=== PATIENT | female | born 1940 | race Caucasian/White ===

== ENCOUNTER 2020-05-27 12:17 | Emergency (ER) | payer MEDICARE, SELFPAY ==
--- NOTE | 2020-05-27 | XR_ITS ---
EXAMINATION: XR FOOT, LEFT CLINICAL INFORMATION: Stepped on a nail COMPARISON: None TECHNIQUE: AP, lateral, and oblique views of the left foot. FINDINGS: Findings detail is obscured by the overlying shoe. The nail is present within the medial aspect of the great toe, at the level of the interphalangeal joints, overlying the soft tissues. This may abut the cortex at the medial/distal aspect of the 1st proximal phalanx. No obvious fracture. IMPRESSION: The nail is located within the volar soft tissues of the great toe, possibly abutting the cortex at the medial/distal aspect of the 1st proximal phalanx. No fracture is evident.
--- NOTE | 2020-05-27 | XR_ITS ---
EXAMINATION: XR FOOT, LEFT CLINICAL INFORMATION: Status post foreign body removal COMPARISON: Same day radiographs TECHNIQUE: AP and lateral views of the left foot. FINDINGS: No residual foreign body. No fracture. 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 IMPRESSION: No fracture or residual foreign body.
--- NOTE | 2020-05-27 12:20 | ED_ITS ---
HPI - Wound/Laceration General Chief Complaint: Wound/Laceration Stated Complaint: puncture wound Time Seen by Provider: 05/27/20 12:19 Source: EMS Mode of arrival: EMS Limitations: no limitations History of Present Illness HPI narrative: Stepped on joan nail while outside. Went through soled shoe. Patient tried to remove by self but could not. Tetanus unknown. 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) Extremity Location: left: foot Place: home Patient tetanus UTD: No Context: accidental Associated symptoms: none Related Data Previous Rx's Medication Instructions Recorded ciprofloxacin HCl [Cipro] 500 mg PO BID #14 tab 05/27/20 Allergies Allergy/AdvReac Type Severity Reaction Status Date / Time No Known Allergies Allergy Unknown N/A Verified 05/27/20 12:22 [NO KNOWN ALLERGIES] Review of Systems Review of Systems: Yes all other systems are reviewed and are negative Constitutional: Constitutional: Reports no additional constitutional complaints, Denies body ache(s), Denies chills, Denies fever(s), Denies headache(s) and Denies weakness Eyes: Eyes: Reports no additional eye complaints and Denies change in vision ENT: Reports system reviewed and no additional complaints, except as documented, Denies dizziness, Denies headache(s), Denies nasal congestion, Denies nasal discharge and Denies neck pain Cardiovascular: Cardiovascular: Reports no additional cardiovascular complaints, Denies chest pain, Denies leg edema and Denies dyspnea Respiratory: Respiratory: Reports no additional respiratory complaints, Denies cough and Denies dyspnea Gastrointestinal: Gastrointestinal: Reports no additional gastrointestinal complaints, Denies abdominal pain, Denies diarrhea, Denies nausea and Denies vomiting Genitourinary: Genitourinary: Reports no additional female genitourinary complaints and Denies urinary incontinence Musculoskeletal: Musculoskeletal: Reports no additional musculoskeletal complaints, Denies back pain, Denies arthralgias, Denies joint swelling, Denies neck pain, Denies numbness and Denies tingling Integumentary/Breasts: Skin/Breast: Reports system reviewed and no additional complaints, except as docu and Denies rash Neurologic: Reports system reviewed and no additional complaints, except as documented, Denies Abnormal speech present, Denies dizziness, Denies headache(s), Denies numbness, Denies tingling and Denies weakness PMF Past Medical History Attestation statement: The following information was validated with the patient. Source: obtained from family and nursing notes reviewed Medical History (Updated 05/27/20 @ 12:28 by Kailey Hudson NP) Hyperlipemia Hypertension Surgical History (Updated 05/27/20 @ 12:22 by Kailey Hudson NP) History of hip replacement History of knee replacement Social History Social History Advance Directives: Yes Advance Directives Information Provided: Yes Advance Directives on File: No Physical Exam Vital Signs and I&O and Narrative: Vital Signs and I&O: Vital Signs Temp 98.5 F 05/27/20 12:22 Pulse 71 05/27/20 12:22 Resp 18 05/27/20 12:22 BP 163/76 H 05/27/20 12:22 Pulse Ox 97 05/27/20 12:22 Intake & Output 05/26/20 05/27/20 05/27/20 18:59 06:59 18:59 Weight 76 kg Body Mass Index 26.2 Const: General: cooperative, healthy appearing, comfortable and no acute distress Orientation/consciousness: patient oriented x3 Limitations: no limitations HENMT: Head: Yes normal to inspection Ears: hearing grossly normal bilaterally General nose exam: Normal external nose present Face and sinus: Yes normal facial exam Mouth: Normal oral and palatal mucosa present Throat: Yes posterior oropharynx normal Eyes: General: appearance normal, both eyes and all related structures Pupils: Equal, round and reactive pupils present Neck: Neck: Yes normal visual inspection Chest: Chest palpation & inspection: normal inspection of the chest Resp: Effort & Inspection: normal respiratory effort Auscultation: clear to auscultation bilaterally Cardio: Rate: regular rate Rhythm: regular rhythm Peripheral pulses: Peripheral pulses 2+ throughout GI: Inspection: Yes normal to inspection Palpation (GI): Soft to palpation and nontender Auscultation: normal bowel sounds Back/Spine/Pelvis: Thoracic/Lumbar Spine: thoracic and lumbar spine normal to inspection Skin: General skin exam: no rashes or lesions noted Neuro: General: patient oriented x3, no focal motor deficits and normal sensation to monofilament Cranial nerves: Yes Equal, round and reactive pupils present Cognition (Neuro): normal cognition Speech: No Abnormal speech present Gait exam (Neuro): Normal gait present Motor exam (neuro): 5/5 motor strength present throughout Extrem: Other: Noted to have soled shoe on with nail present over plantar dis nathan aspect. FROM. NV intact distally. General: Yes normal to inspection Course Course Course Narrative: Nail in left foot with shoe present. Will check imaging to eval extent prior to removal. Procedures Foreign Body Removal Time Out Performed: no Site: left Description of foreign body: other (nail) Sedation/Analgesia: none Technique: manual removal and removal with forceps Confirmed by:: radiograph (Repeat X-ray shows no FB) Complications: none Post-procedure exam: awake, alert Neurovascular: normal distal pulse, normal capillary fill, distal light touch sensation intact, distal motor function normal and other (Patient soaked in betadine 15 min post, wound care provided ) MDM - Wound/Laceration MDM Narrative Medical decision making narrative: X-ray shows nail FB in left foot. Removed. See procedure note. Repeat x-ray shows no FB. Scrupulous wound care provided. Given post-op shoe for ambulation. Tetanus updated. Reviewed worrisome signs./symptoms with patient and when to return to ED. comfortable with discharge home. Discharge Plan Discharge Clinical Impression: Foreign body (FB) in soft tissue Puncture wound of plantar aspect of foot Qualifiers: Encounter type: initial encounter Laterality: left Qualified Code(s): S91.332A - Puncture wound without foreign body, left foot, initial encounter Patient Disposition: Home, Self-Care Instructions: Soft Tissue Foreign Body (ED), Puncture Wound in the Foot (ED) Additional Instructions: Start antibiotics today Wash with soap and water daily. Inspect foot daily and return for fever >100.4, redness, pain out of proportion or drainage Prescriptions: New ciprofloxacin HCl [Cipro] 500 mg tablet 500 mg PO BID Qty: 14 RF: 0 Referrals: Mary Jo Rodriguez MD [Primary Care Provider] - 2 days
[2020-05-27 12:22] VITALS: BP 134/70; BP 163/76; PULSE 70; PULSE 71; RESP 18; TEMP 36.9; O2SAT 97; O2SAT 98; BMI 26.2
== END 2020-05-27 14:10 | disposition home or self-care (01) ==
PROVIDERS: Emergency Provider Emergency Medicine; PCP Internal Medicine
DX: S91.332A Puncture wound without foreign body, left foot, initial encounter (principal); W45.0XXA Nail entering through skin, initial encounter; I10 Essential (primary) hypertension; Y93.9 Activity, unspecified; Y92.019 Unspecified place in single-family (private) house as the place of occurrence of the external cause; Y99.9 Unspecified external cause status
CPT/HCPCS: 73620; 73630; 90471; 99284

== ENCOUNTER 2020-06-23 10:53 | Outpatient (REF) | payer MEDICARE, SELFPAY ==
--- NOTE | 2020-06-23 | MM_ITS ---
EXAMINATION: MM SCREENING DIGITAL BREAST TOMOSYNTHESIS, BILATERAL CLINICAL INFORMATION: Screening. Asymptomatic. The lifetime risk of breast cancer based on the Tyrer-Cuzick Model is 2.8%. COMPARISON: Mammography: June 18, 2019 and studies dating back to January 13, 2011 TECHNIQUE: Digital breast tomosynthesis is performed in both the craniocaudal and mediolateral oblique views along with computer-aided detection (CAD). Synthesized 2D images are generated from the tomosynthesis. FINDINGS: The breasts are almost entirely fatty (ACR BI-RADS breast composition Category a). There are no significant masses, abnormal calcifications, or other abnormalities. MM/MM tomosynthesis screening BI IMPRESSION: There are no significant changes from prior study. ASSESSMENT: BI-RADS 1: Negative RECOMMENDATION: Routine annual mammography screening. This patient's information was entered into a reminder system with a target due date for their next mammogram.
== END 2020-06-23 10:54 | disposition home or self-care (01) ==
LOC: HO.MAMMO 10:53
PROVIDERS: PCP Internal Medicine; Visit Provider Internal Medicine
DX: Z12.31 Encounter for screening mammogram for malignant neoplasm of breast (principal)
CPT/HCPCS: 77063; 77067

== ENCOUNTER 2020-09-03 08:38 | Outpatient (REF) | payer MEDICARE, SELFPAY ==
[2020-09-03 11:11] LABS: Alanine Aminotransferase 21 U/L (0-31); Albumin Level 4.3 g/dL (3.5-5.0); Alkaline Phosphatase 80 U/L (39-117); Anion Gap 13 (12-20); Aspartate Amino Transferase 28 U/L (5-31); Bilirubin Total 0.7 mg/dL (0.0-1.0); Blood Urea Nitrogen 18 mg/dL (9-16); Calcium 8.8 mg/dL (8.4-10.2); Carbon Dioxide 27 mmol/L (22-29); Chloride 106 mmol/L (96-108); Cholesterol 208 mg/dL; Estimated Glomerular Filt Rate > 60; Glucose Fasting 82 mg/dL (60-99); HDL Cholesterol 58 mg/dL; LDL Cholesterol Calculated 133 mg/dl; Potassium 4.3 mmol/l (3.3-5.1); Sodium 142 mmol/L (135-145); Total Protein 7.2 g/dL (6.5-8.0); Triglycerides 89 mg/dL
== END 2020-09-03 08:39 | disposition home or self-care (01) ==
LOC: HO.10HDL 08:38
PROVIDERS: Visit Provider Internal Medicine
DX: E78.00 Pure hypercholesterolemia, unspecified (principal); I10 Essential (primary) hypertension
CPT/HCPCS: 36415; 80053; 80061

== ENCOUNTER 2021-01-29 08:51 | Outpatient (REF) | payer MEDICARE, SELFPAY ==
[2021-01-29 10:11] LABS: MANUAL DIFF FLAG NO
[2021-01-29 10:17] LABS: Basophils Percent Auto 0.4 % (0-2); Eosinophils Absolute Auto 0.2 X10*3/uL (0.0-0.4); Eosinophils Percent Auto 2.6 % (0-4); Hematocrit 41.1 % (37-47); Hemoglobin 13.1 g/dl (12.0-16.0); Imm Gran Abs Auto 0.04 X10*3/uL (0.00-0.03); Imm Gran Pct Auto 0.5 % (0.0-0.4); Lymphocytes Percent Auto 36.8 % (20-40); Mean Corpuscular HGB Conc 31.9 g/dl (31.0-35.0); Mean Corpuscular Hemoglobin 29.4 pg (27.0-33.0); Mean Corpuscular Volume 92.2 fL (80-98); Mean Platelet Volume 10.5 fL (9.4-12.3); Monocytes Absolute Auto 0.6 X10*3/uL (0.1-1.2); Monocytes Percent Auto 7.5 % (2-11); Neutrophils Absolute Auto 4.2 X10*3/uL (2.0-8.3); Neutrophils Percent Auto 52.2 % (45-73); Platelet Count 369 X10*3/uL (160-400); Red Blood Count 4.46 X10*6/uL (4.20-5.50); Red Cell Distribution Width 13.6 % (11.0-16.0); White Blood Count 8.1 X10*3/uL (4.8-10.8)
[2021-01-29 10:33] LABS: Alanine Aminotransferase 16 U/L (0-31); Albumin Level 4.2 g/dL (3.5-5.0); Alkaline Phosphatase 93 U/L (39-117); Anion Gap 12 (12-20); Aspartate Amino Transferase 25 U/L (5-31); Bilirubin Total 0.6 mg/dL (0.0-1.0); Blood Urea Nitrogen 16 mg/dL (9-16); Calcium 8.9 mg/dL (8.4-10.2); Carbon Dioxide 27 mmol/L (22-29); Chloride 106 mmol/L (96-108); Estimated Glomerular Filt Rate > 60; Glucose Random 89 mg/dL (60-115); Potassium 4.3 mmol/L (3.3-5.1); Sodium 141 mmol/L (135-145); Total Protein 6.9 g/dL (6.5-8.0)
[2021-01-29 10:58] LABS: Vitamin D 25-OH Total 44.5 ng/mL (>30)
== END 2021-01-29 08:52 | disposition home or self-care (01) ==
LOC: HO.10HDL 08:51
PROVIDERS: Visit Provider Internal Medicine
DX: I10 Essential (primary) hypertension (principal); M81.0 Age-related osteoporosis without current pathological fracture; G56.00 Carpal tunnel syndrome, unspecified upper limb
CPT/HCPCS: 36415; 80053; 82306; 85025

== ENCOUNTER 2021-12-14 10:28 | Outpatient (REF) | payer MEDICARE, SELFPAY ==
--- NOTE | ~2021-12-14 | MM_ITS ---
EXAMINATION: MM SCREENING DIGITAL BREAST TOMOSYNTHESIS, BILATERAL CLINICAL INFORMATION: Screening. Asymptomatic. The lifetime risk of breast cancer based on the Tyrer-Cuzick Model is 2%. COMPARISON: Mammography: 06/23/2020, 06/18/2019, 05/09/2018 TECHNIQUE: Digital breast tomosynthesis is performed in both the craniocaudal and mediolateral oblique views along with computer-aided detection (CAD). Synthesized 2D images are generated from the tomosynthesis. FINDINGS: There are scattered areas of fibroglandular density (ACR BI-RADS breast composition Category b). There are no significant masses, abnormal calcifications, or other abnormalities. Background stromal markings are stable. No developing density. No significant changes. MM/MM tomosynthesis screening BI IMPRESSION: No mammographic evidence of malignancy. ASSESSMENT: BI-RADS 1: Negative RECOMMENDATION: Routine annual mammography screening. This patient's information was entered into a reminder system with a target due date for their next mammogram.
== END 2021-12-14 10:29 | disposition home or self-care (01) ==
LOC: HO.MAMMO 10:28
PROVIDERS: PCP Internal Medicine; Visit Provider Internal Medicine
DX: Z12.31 Encounter for screening mammogram for malignant neoplasm of breast (principal)
CPT/HCPCS: 77063; 77067

== ENCOUNTER 2022-01-10 08:05 | Outpatient (REF) | payer MEDICARE, SELFPAY ==
[2022-01-10 10:22] LABS: MANUAL DIFF FLAG NO
[2022-01-10 10:27] LABS: Basophils Percent Auto 0.5 % (0-2); Eosinophils Absolute Auto 0.2 X10*3/uL (0.0-0.4); Hematocrit 39.4 % (37.0-47.0); Hemoglobin 12.7 g/dl (12.0-16.0); Imm Gran Abs Auto 0.02 X10*3/uL (0.00-0.03); Imm Gran Pct Auto 0.3 % (0.0-0.4); Lymphocytes Absolute Auto 3.4 X10*3/uL (1.2-4.9); Lymphocytes Percent Auto 42.7 % (20-40); Mean Corpuscular HGB Conc 32.2 g/dl (31.0-35.0); Mean Corpuscular Hemoglobin 29.5 pg (27.0-33.0); Mean Corpuscular Volume 91.4 fL (80.0-98.0); Mean Platelet Volume 10.3 fL (9.4-12.3); Monocytes Absolute Auto 0.6 X10*3/uL (0.1-1.2); Monocytes Percent Auto 7.9 % (2-11); Neutrophils Absolute Auto 3.6 x10*3/uL (2.0-8.3); Neutrophils Percent Auto 45.6 % (45-73); Platelet Count 386 X10*3/uL (160-400); Red Blood Count 4.31 X10*6/uL (4.20-5.50); Red Cell Distribution Width 13.4 % (11.0-16.0); White Blood Count 7.9 X10*3/uL (4.8-10.8)
[2022-01-10 10:49] LABS: Alanine Aminotransferase 19 U/L (0-31); Alkaline Phosphatase 78 U/L (39-117); Anion Gap 12 (12-20); Aspartate Amino Transferase 26 U/L (5-31); Bilirubin Total 0.5 mg/dL (0.0-1.0); Blood Urea Nitrogen 16 mg/dL (9-16); Calcium 8.9 mg/dL (8.4-10.2); Carbon Dioxide 23 mmol/L (22-29); Chloride 110 mmol/L (96-108); Cholesterol 198 mg/dL; Estimated Glomerular Filt Rate > 60; Glucose Fasting 93 mg/dL (60-99); HDL Cholesterol 51 mg/dL; LDL Cholesterol Calculated 132 mg/dl; Potassium 4.2 mmol/L (3.3-5.1); Sodium 141 mmol/L (135-145); Total Protein 6.9 g/dL (6.5-8.0); Triglycerides 77 mg/dL
== END 2022-01-10 08:06 | disposition home or self-care (01) ==
LOC: HO.10HDL 08:05
PROVIDERS: Visit Provider Internal Medicine
DX: I10 Essential (primary) hypertension (principal); E78.00 Pure hypercholesterolemia, unspecified; M81.0 Age-related osteoporosis without current pathological fracture
CPT/HCPCS: 36415; 80053; 80061; 85025

== ENCOUNTER 2022-05-05 09:17 | Outpatient (REF) | payer MEDICARE, SELFPAY ==
--- NOTE | 2022-05-05 09:21 | EMG_ITS ---
Right median and ulnar motor and sensory studies were performed. Right radial sensory study was performed and paraspinal muscles were tested with a needle. IMPRESSION: Mild to moderate right median neuropathy across carpal tunnel. MD FRANKY Singh/TOAN / [id number]
== END 2022-05-05 09:18 | disposition home or self-care (01) ==
LOC: HO.NEURO 09:17
PROVIDERS: PCP Internal Medicine; Visit Provider Internal Medicine
DX: R20.2 Paresthesia of skin (principal)
CPT/HCPCS: 95886; 95909

== ENCOUNTER 2022-12-19 10:47 | Outpatient (REF) | payer MEDICARE, SELFPAY ==
--- NOTE | ~2022-12-19 | MM_ITS ---
EXAMINATION: MM SCREENING DIGITAL BREAST TOMOSYNTHESIS, BILATERAL CLINICAL INFORMATION: Screening. Asymptomatic. The lifetime risk of breast cancer based on the Tyrer-Cuzick Model is 2%. COMPARISON: Mammography: 12/14/2021, 06/23/2020, 06/18/2019 TECHNIQUE: Digital breast tomosynthesis is performed in both the craniocaudal and mediolateral oblique views along with computer-aided detection (CAD). Synthesized 2D images are generated from the tomosynthesis. FINDINGS: There are scattered areas of fibroglandular density (ACR BI-RADS breast composition Category b). Breast tissue composition borders on predominantly fatty. Background stromal and fibroglandular densities are stable and there is no developing density or architectural abnormality. There are no significant masses, abnormal calcifications, or other abnormalities. The axilla and skin contours are unremarkable. MM/MM tomosynthesis screening BI IMPRESSION: No mammographic evidence of malignancy. ASSESSMENT: BI-RADS 1: Negative RECOMMENDATION: Routine annual mammography screening. This patient's information was entered into a reminder system with a target due date for their next mammogram.
== END 2022-12-19 10:48 | disposition home or self-care (01) ==
LOC: HO.MAMMO 10:47
PROVIDERS: Visit Provider Internal Medicine
DX: Z12.31 Encounter for screening mammogram for malignant neoplasm of breast (principal)
CPT/HCPCS: 77063; 77067

== ENCOUNTER 2023-01-04 09:02 | Outpatient (REF) | payer MEDICARE, SELFPAY ==
[2023-01-04 10:34] LABS: MANUAL DIFF FLAG NO
[2023-01-04 10:44] LABS: Basophils Percent Auto 0.5 % (0-2); Eosinophils Absolute Auto 0.3 X10*3/uL (0.0-0.4); Eosinophils Percent Auto 3.6 % (0-4); Hematocrit 38.2 % (37.0-47.0); Hemoglobin 12.3 g/dl (12.0-16.0); Imm Gran Abs Auto 0.02 X10*3/uL (0.00-0.03); Imm Gran Pct Auto 0.3 % (0.0-0.4); Lymphocytes Absolute Auto 2.2 X10*3/uL (1.2-4.9); Lymphocytes Percent Auto 29.3 % (20-40); Mean Corpuscular HGB Conc 32.2 g/dl (31.0-35.0); Mean Corpuscular Hemoglobin 29.1 pg (27.0-33.0); Mean Corpuscular Volume 90.3 fL (80.0-98.0); Mean Platelet Volume 9.9 fL (9.4-12.3); Monocytes Absolute Auto 0.6 X10*3/uL (0.1-1.2); Monocytes Percent Auto 8.1 % (2-11); Neutrophils Absolute Auto 4.4 x10*3/uL (2.0-8.3); Neutrophils Percent Auto 58.2 % (45-73); Platelet Count 376 X10*3/uL (160-400); Red Blood Count 4.23 X10*6/uL (4.20-5.50); Red Cell Distribution Width 13.9 % (11.0-16.0); White Blood Count 7.5 X10*3/uL (4.8-10.8)
[2023-01-04 11:11] LABS: Alanine Aminotransferase 17 U/L (0-31); Alkaline Phosphatase 75 U/L (39-117); Anion Gap 11 (12-20); Aspartate Amino Transferase 24 U/L (5-31); Bilirubin Total 0.8 mg/dL (0.0-1.0); Blood Urea Nitrogen 16 mg/dL (9-16); Calcium 8.8 mg/dL (8.4-10.2); Carbon Dioxide 26 mmol/L (22-29); Chloride 110 mmol/L (96-108); Cholesterol 195 mg/dL; Estimated Glomerular Filt Rate > 60; Glucose Fasting 82 mg/dL (60-99); HDL Cholesterol 48 mg/dL; LDL Cholesterol Calculated 129 mg/dl; Potassium 4.2 mmol/L (3.3-5.1); Sodium 143 mmol/L (135-145); Total Protein 6.5 g/dL (6.5-8.0); Triglycerides 91 mg/dL
== END 2023-01-04 09:03 | disposition home or self-care (01) ==
LOC: HO.10HDL 09:02
PROVIDERS: Visit Provider Internal Medicine
DX: Z13.89 Encounter for screening for other disorder (principal)
CPT/HCPCS: 36415; 80053; 80061; 85025

== ENCOUNTER 2023-12-25 09:25 | Outpatient (REF) | payer MEDICARE, SELFPAY | END 2023-12-25 09:26 | disposition home or self-care (01) | LOC: HO.MAMMO 09:25 | PROVIDERS: PCP Internal Medicine; Visit Provider Internal Medicine | DX: Z12.31 Encounter for screening mammogram for malignant neoplasm of breast (principal) | CPT/HCPCS: 77063; 77067 ==

== ENCOUNTER → 2023-12-25 09:30 | Outpatient (BNV) | payer MEDICARE, SELFPAY | PROVIDERS: PCP Internal Medicine; Visit Provider Radiology Diagnostic Radiology | DX: Z12.31 Encounter for screening mammogram for malignant neoplasm of breast (principal) | CPT/HCPCS: 77063; 77067 ==

== ENCOUNTER 2023-12-26 15:03 | Outpatient (REF) | payer MEDICARE, SELFPAY ==
--- NOTE | ~2023-12-26 | US_ITS ---
EXAMINATION: US VENOUS ULTRASOUND WITH DOPPLER LOWER EXTREMITY, LEFT CLINICAL INFORMATION: Edema COMPARISON: None available. TECHNIQUE: Ultrasound of the deep veins is performed from the hip to the calf with compression sonography and color and pulse Doppler assessment. Spectral analysis with color-flow imaging is performed. FINDINGS: There is normal venous compression and respiratory variation. The visualized common femoral vein, superficial femoral vein, profunda femoral vein, popliteal vein, and the posterior tibial and peroneal veins shows no evidence of deep venous thrombosis. Marked left calf edema is seen. Benign-appearing lymph node measuring 2.0 x 0.8 x 1.1 cm is seen in the left groin. US/US venous duplex LE LT IMPRESSION: No DVT demonstrated in the left lower extremity.
[2023-12-26 15:21] LABS: MANUAL DIFF FLAG NO
[2023-12-26 15:45] LABS: Basophils Absolute Auto 0.1 X10*3/uL (0.0-0.2); Basophils Percent Auto 0.4 % (0-2); Eosinophils Absolute Auto 0.2 X10*3/uL (0.0-0.4); Eosinophils Percent Auto 1.6 % (0-4); Hematocrit 39.1 % (37.0-47.0); Hemoglobin 12.9 g/dl (12.0-16.0); Imm Gran Abs Auto 0.05 X10*3/uL (0.00-0.03); Imm Gran Pct Auto 0.4 % (0.0-0.4); Lymphocytes Absolute Auto 3.6 X10*3/uL (1.2-4.9); Lymphocytes Percent Auto 29.6 % (20-40); Mean Corpuscular Hemoglobin 29.7 pg (27.0-33.0); Mean Corpuscular Volume 89.9 fL (80.0-98.0); Mean Platelet Volume 9.7 fL (9.4-12.3); Monocytes Absolute Auto 0.9 X10*3/uL (0.1-1.2); Monocytes Percent Auto 7.2 % (2-11); Neutrophils Absolute Auto 7.4 x10*3/uL (2.0-8.3); Neutrophils Percent Auto 60.8 % (45-73); Platelet Count 376 X10*3/uL (160-400); Red Blood Count 4.35 X10*6/uL (4.20-5.50); White Blood Count 12.1 X10*3/uL (4.8-10.8)
[2023-12-26 16:53] LABS: Anion Gap 14 (12-20); Blood Urea Nitrogen 19 mg/dL (9-16); C Reactive Protein 0.53 mg/dL (< or = 0.50); Calcium 9.9 mg/dL (8.4-10.2); Carbon Dioxide 25 mmol/L (22-29); Chloride 106 mmol/L (96-108); Estimated Glomerular Filt Rate > 60; Glucose Random 101 mg/dL (60-115); Potassium 3.5 mmol/L (3.3-5.1); Sodium 141 mmol/L (135-145); Uric Acid 4.4 mg/dL (2.4-5.7)
[2023-12-27 17:44] LABS: Lyme Abs Screen <0.90 index
== END 2023-12-26 15:04 | disposition home or self-care (01) ==
LOC: HO.US 15:03
PROVIDERS: PCP Internal Medicine; Visit Provider Internal Medicine
DX: R22.43 Localized swelling, mass and lump, lower limb, bilateral (principal)
CPT/HCPCS: 36415; 80048; 84550; 85025; 86140; 86617; 86618; 93971

== ENCOUNTER 2024-02-09 08:00 | Outpatient (REF) | payer MEDICARE, SELFPAY ==
[2024-02-09 10:48] LABS: MANUAL DIFF FLAG NO
[2024-02-09 10:53] LABS: Basophils Percent Auto 0.4 % (0-2); Eosinophils Absolute Auto 0.2 X10*3/uL (0.0-0.4); Eosinophils Percent Auto 3.1 % (0-4); Hemoglobin 13.1 g/dl (12.0-16.0); Imm Gran Abs Auto 0.01 X10*3/uL (0.00-0.03); Imm Gran Pct Auto 0.1 % (0.0-0.4); Lymphocytes Percent Auto 40.7 % (20-40); Mean Corpuscular HGB Conc 33.6 g/dl (31.0-35.0); Mean Corpuscular Volume 89.4 fL (80.0-98.0); Monocytes Absolute Auto 0.6 X10*3/uL (0.1-1.2); Monocytes Percent Auto 7.6 % (2-11); Neutrophils Absolute Auto 3.6 x10*3/uL (2.0-8.3); Neutrophils Percent Auto 48.1 % (45-73); Platelet Count 355 X10*3/uL (160-400); Red Blood Count 4.36 X10*6/uL (4.20-5.50); Red Cell Distribution Width 13.8 % (11.0-16.0); White Blood Count 7.4 X10*3/uL (4.8-10.8)
[2024-02-09 11:15] LABS: Alanine Aminotransferase 29 U/L (0-31); Albumin Level 4.2 g/dL (3.5-5.0); Alkaline Phosphatase 87 U/L (39-117); Anion Gap 12 (12-20); Aspartate Amino Transferase 36 U/L (5-31); Bilirubin Total 0.8 mg/dL (0.0-1.0); Blood Urea Nitrogen 17 mg/dL (9-16); Calcium 9.5 mg/dL (8.4-10.2); Carbon Dioxide 25 mmol/L (22-29); Chloride 109 mmol/L (96-108); Cholesterol 222 mg/dL (<200); Estimated Glomerular Filt Rate > 60; Glucose Fasting 91 mg/dL (60-99); HDL Cholesterol 47 mg/dL (>40); LDL Cholesterol Calculated 153 mg/dL (<100); Potassium 3.7 mmol/L (3.3-5.1); Sodium 142 mmol/L (135-145); Total Protein 7.2 g/dL (6.5-8.0); Triglycerides 111 mg/dL (<150)
[2024-02-09 11:21] LABS: Vitamin D 25-OH Total 65.8 ng/mL (>30)
== END 2024-02-09 08:01 | disposition home or self-care (01) ==
LOC: HO.10HDL 08:00
PROVIDERS: Visit Provider Internal Medicine
DX: I10 Essential (primary) hypertension (principal); E78.00 Pure hypercholesterolemia, unspecified; M85.80 Other specified disorders of bone density and structure, unspecified site
CPT/HCPCS: 36415; 80053; 80061; 82306; 85025

== ENCOUNTER 2024-09-23 13:34 | Outpatient (REF) | payer MEDICARE, SELFPAY ==
[2024-09-23 13:52] LABS: MANUAL DIFF FLAG NO
[2024-09-23 14:29] LABS: Basophils Percent Auto 0.2 % (0-2); Eosinophils Absolute Auto 0.2 X10*3/uL (0.0-0.4); Eosinophils Percent Auto 2.1 % (0-4); Hematocrit 41.1 % (37.0-47.0); Hemoglobin 13.4 g/dl (12.0-16.0); Imm Gran Abs Auto 0.03 X10*3/uL (0.00-0.03); Imm Gran Pct Auto 0.4 % (0.0-0.4); Lymphocytes Absolute Auto 3.1 X10*3/uL (1.2-4.9); Lymphocytes Percent Auto 36.4 % (20-40); Mean Corpuscular HGB Conc 32.6 g/dl (31.0-35.0); Mean Corpuscular Hemoglobin 29.5 pg (27.0-33.0); Mean Corpuscular Volume 90.5 fL (80.0-98.0); Mean Platelet Volume 10.5 fL (9.4-12.3); Monocytes Absolute Auto 0.8 X10*3/uL (0.1-1.2); Monocytes Percent Auto 9.4 % (2-11); Neutrophils Absolute Auto 4.4 x10*3/uL (2.0-8.3); Neutrophils Percent Auto 51.5 % (45-73); Platelet Count 314 X10*3/uL (160-400); Red Blood Count 4.54 X10*6/uL (4.20-5.50); Red Cell Distribution Width 13.9 % (11.0-16.0); White Blood Count 8.4 X10*3/uL (4.8-10.8)
[2024-09-23 15:14] LABS: Anion Gap 12 (12-20)
[2024-09-23 15:17] LABS: Alanine Aminotransferase 18 U/L (0-31); Aspartate Amino Transferase 34 U/L (5-31); Bilirubin Total 0.5 mg/dL (0.0-1.0); Blood Urea Nitrogen 21 mg/dL (9-16); C Reactive Protein 3.77 mg/dL (< or = 0.50); Calcium 9.2 mg/dL (8.4-10.2); Carbon Dioxide 26 mmol/L (22-29); Chloride 106 mmol/L (96-108); Estimated Glomerular Filt Rate > 60; Glucose Random 84 mg/dL (60-115); Potassium 3.3 mmol/L (3.3-5.1); Sodium 141 mmol/L (135-145); Total Protein 7.5 g/dL (6.5-8.0)
[2024-09-23 16:07] LABS: Alkaline Phosphatase 69 U/L (39-117)
== END 2024-09-23 13:35 | disposition home or self-care (01) ==
LOC: HO.LAB 13:34
PROVIDERS: PCP Internal Medicine; Visit Provider Internal Medicine
DX: R10.11 Right upper quadrant pain (principal)
CPT/HCPCS: 36415; 80053; 85025; 86140

== ENCOUNTER 2024-12-30 08:57 | Outpatient (REF) | payer MEDICARE, SELFPAY ==
--- OUTSIDE RECORDS SUMMARY | 2024-12-30 09:05 | XMS_ITS ---
Author Organization [facility] Address [address] [facility] [place] [address] Care Team Providers Care Training Associate Name Role Phone Issa Rodriguez MD Primary Care Provider Rickie Boland Unavailable [phone] Allergies No Known Allergies REASON FOR VISIT Last PCP Visit: 02/20/2024, Foot pain Medications Medication SIG (Take, Route, Frequency, Duration) Notes Start Date End Date Status Pravastatin Sodium 20 MG 1 tablet Orally Once a day Active Atenolol 25 MG 1 tablet Orally Once a day Active Losartan Potassium 50 MG 1 tablet Orally Once a day Active amLODIPine Besylate 5 MG 1 tablet Orally Once a day Active Social History Tobacco Use: Social History [...] Are you an other tobacco user? No Problems Problem Type SNOMED Code ICD Code Onset Dates Problem Status W/U Status Risk Notes Problem Acquired hallux rigidus (1068387) Hallux rigidus, right foot (M20.21) Active confirmed Problem Acquired hallux valgus (98784295) Hallux valgus (acquired), left foot (M20.12) Active confirmed Problem Acquired hammer toe of right foot (5976096991646 105) Other hammer toe(s) (acquired), right foot (M20.41) Active confirmed Problem Acquired hammer toe of left foot (2570073476258 103) Other hammer toe(s) (acquired), left foot (M20.42) Active confirmed Vital Signs Height 5 ft 7 in in 03/11/2024 Weight 170 lbs 03/11/2024 BMI 26.62 kg/m2 03/11/2024 Encounters Encounter Location Date Provider Diagnosis [facility] [address] [place] [address] 03/11/2024 Rickie Inman Metatarsalgia, left foot M77.42 ; Metatarsalgia, right foot M77.41 ; Hallux rigidus, right foot M20.21 ; Hallux valgus (acquired), left foot M20.12 ; Other hammer toe(s) (acquired), right foot M20.41 ; Other hammer toe(s) (acquired), left foot M20.42 and Stress fracture, left foot, sequela M84.375S Assessments Encounter Date Diagnosis (ICD Code) Assessment Notes Treatment Notes Treatment Clinical Notes Section Notes 03/11/2024 Metatarsalgia, left foot (ICD-10 - M77.42) 03/11/2024 Metatarsalgia, right foot (ICD-10 - M77.41) 03/11/2024 Hallux rigidus, right foot (ICD-10 - M20.21) 03/11/2024 Hallux valgus (acquired), left foot (ICD-10 - M20.12) 03/11/2024 Other hammer toe(s) (acquired), right foot (ICD-10 - M20.41) 03/11/2024 Other hammer toe(s) (acquired), left foot (ICD-10 - M20.42) 03/11/2024 Stress fracture, left foot, sequela (ICD-10 - M84.375S) Plan Of Treatment Pending Test Test Name Order Date X ray : Foot, left 3V 03/11/2024 X ray : Foot, right 3V 03/11/2024 Next Appt Details Follow Up: prn, Reason: Progress Notes * Jonathan MLEVINsDOB: 0 (83 yo F)Acc No.[id number]:03/11/2024 Progress Notes Patient:?Ernestine Melvin Provider:?Rickie Inman DPM :1940???Age:83 Y???Sex:Female D ate:03/11/2024 Address:[address], [id number] Pcp:Issa Rodriguez MD Subjective: * Chief Complaints: * ??? Last PCP Visit: 02/20/2024 Foot pain * HPI: ???Foot Pain:?Nature:?aching, swelling, tenderness.?Location?Bottom, Forefoot, B/L, L>R.?Duration:?several months.?Onset/Cause:?overuse.?Course:?improved, at __80_ %.?Aggrevated:?any pressure, standing, walking, barefoot walking.?Treatments:?rest, ice, tyl.?Quality/Severity?6 in December and now?2, scale 1-10.? * ROS:?General/Constitutional:?Nausea?denies, denies.?Vomiting?denies, denies.?Hunger Thirst?denies, denies.?Loss appetite?denies, denies.?Chills?denies, denies.?Fatigue?denies, denies.?Fever?denies, denies.?Night Sweats denies, denies.?Unexplained weight loss?denies, denies.?Unexplained weight gain?denies.?Ophthalmologic:?Blurred vision?denies.?Red eye?denies.?HEENTM:?Dentures?denies, denies.?Dizziness?denies, denies.?Glasses/contacts?admits, denies.?Retinopathy?denies, denies.?Blurred/double vision?denies, denies.?TMJ?denies, denies.?Discharge/drainage?denies, denies.?Implants?denies, denies.?Sore throat?denies.?Dental implants?denies.?Hard of hearing ?denies, denies.?Difficulty chewing/swallowing/speaking?denies, denies.?Nose bleeds?denies, denies.?Sore mouth?denies, denies.?Swollen glands?denies.?Respiratory:?On Oxygen?denies, denies.?Pneumonia/pleurisy?denies, denies.?Bronchitis?denies, denies.?Emphysema?denies, denies.?Coughing?denies, denies.?Cough blood?denies, denies.?Shortness of breath?denies, denies.?Wheezing?denies, denies.?Cardiovascular:?Pacemaker?denies, denies.?MVP?denies, denies.?WPW?denies, denies.?CHF?denies, denies.?Heart attack?denies, denies.?Septal defect?denies, denies.?Rapid beat?denies, denies.?Chest pain ?denies, denies.?Atrial Fib.?denies, denies.?Murmur/Palpitations?denies, denies.?Gastrointestinal:?Hemorrhoids?denies, denies.?Stomach/Abdominal pain?denies, denies.?Dark blood stool?denies, denies.?Irritable bowel ?denies, denies.?Constipation?denies, denies.?Diarrhea?denies, denies.?Vomiting?denies.?Hematology:?Swelling?admits, denies.?Clots?denies.?Varicose Veins?denies.?Bruising?denies, denies.?Bleeding problem?denies, denies.?Genitourinary:?Blood urine?denies, denies.?Frequent/Painfu/urination/bladder control?denies, denies.?Kidney stones?denies, denies.?Infection (UTI)?denies, denies.?Nephropathy?denies, denies.?sex trans dis (STD)?denies.?Prostate?denies.?Musculoskeletal:?Hammertoes?denies, denies.?Bunions?denies, denies.?Scoliosis/kyphosis?denies.?Back Pain?denies.?Muscle Cramps/ Resting?denies.?Muscle cramps / walking?denies, denies.?Generalized aches and pains?admits, denies.?Weakness?denies, denies.?Integ.:?Jj?denies, denies.?Scars?denies, denies.?Corns/calluses?denies, denies.?Ingrown nails?denies, denies.?Painful nails?denies, denies.?Open Sores?denies.?Rashes?denies, denies.?Neurologic:?Difficulty sleeping?denies, denies.?Bipolar?denies.?Brain disorder?denies, denies.?Numbness?denies.?Balance trouble?denies, denies.?Confusion?denies, denies.?Fainting/blackouts?denies, denies.?Headache?denies.?Tingling?denies.?Tremors?denies, denies.? * Medical History:? * Surgical History:?Bilateral Hip Surgery 2008, 2019Bilateral Knee Surgery 2013, 2015 * Hospitalization/Major Diagno stic Procedure:?Denies Past Hospitalization * Family History:?Mother: dece ased, diagnosed with Unspecified essential hypertension.?Father: , diagnosed with Family history of arthritis, Unspecified cerebral artery occlusion with cerebral infarction.? * Social History:?Tobacco Use:?Tobacco Use/Smoking?Are you a:?nonsmoker ?Tobacco use other than smoking?Are you an other tobacco user??No ???Drugs/Alcohol:?Drugs?Have you used drugs other than those for medical reasons in the past 12 months??No ?Alcohol Screen?Did you have a drink containing alcohol in the past year??Yes ?Points?0 ?Interpretation?Negative ???Miscellaneous:?Caffeine: yes, Coffee/Tea: 1-2 cups per day. ?Exercise: yes, golf, senior exercise class 2x weekly. ?Marital status: . ?Occupation: Retired. * Medications:?TakingPravastat in Sodium 20 MG Tablet 1 tablet Orally Once a dayLosartan Potassium 50 MG Tablet 1 tablet Orally Once a dayAtenolol 25 MG Tablet 1 tablet Orally Once a dayamLODIPine Besylate 5 MG Tablet 1 tablet Orally Once a dayMedication List reviewed and reconciled with the patientTaking Pravastatin Sodium 20 MG Tablet 1 tablet Orally Once a dayTaking Losartan Potassium 50 MG Tablet 1 tablet Orally Once a dayTaking Atenolol 25 MG Tablet 1 tablet Orally Once a dayTaking amLODIPine Besylate 5 MG Tablet 1 tablet Orally Once a dayMedication List reviewed and reconciled with the patient * Allergies:?N.K.D.A.yes[Aller gies Verified] Objective: * Vitals:?Ht:5 ft 7 in, Wt:170 , BMI: 26.62, Shoe size:9, Ht-cm: 170.18 cm, Wt-k.11 kg. * Examination: ???General Examination: ?GENERAL APPEARANCE:?pleasant, alert, well nourished, well developed, well hydrated, with good attention to hygene/body habitus, and in no acute distress.?ORIENTED:?person,place, and time.?Neurological: ?SENSORY:?Neurological exam is normal, pain sensation normal, vibration sensation intact, pinprick sensation is normal in the lower extremities, denies, tingling, burning, anesthesia, paresthesia, hyperesthesia, B/L.?TINEL'S COMPRESSION:?Negative tarsal tunnel, mari pedis, and medial calcaneal nerves B/L.?BABINSKI REFLEX:?absent.?Neuroma Pain: ?PALPATION:?No interspace pain noted on palpation.?Vascular: ?DP PULSES:?2/4, B/L.?PT PULSES:?2/4, B/L.?CAPILLARY FILL TIME:?3 secs. per digit, B/L.?SKIN TEMPERTURE GRADIENT OF THE LOWER EXTERMITIES:?warm to cool, proximal to distal, B/L.?HAIR GROWTH/TEXTURE/ELASTICITY/TURGOR:?normal, B/L.?PIGMENTATION:?normal, B/L.?EDEMA:?no edema.?TELANGECTASIA:?absent.?VARICOSITIES:?absent.?Dermatologic: ?SKIN FINDINGS:?Skin exam reveals normal texture, elasticity, and tugor. There are no masses. The interspaces are clear, B/L .?Orthopedic: ?MUSCLE STRENGTH:?5/5 all groups in a symmetrical fashion , B/L.?GAIT ABNORMALITY:?pronated, abducted, B/L.?BUNION:? Dorsally prominent 1st MPJ, (+) Pain on palpation, RIGHT, Limited 1st MPJ Dorsal ROM, Limited 1st MPJ Plantar ROM ?, Medially prominent 1st MPJ, (+) Pain on palpation, LEFT, Lateral tracking 1st MPJ incompletely reducible.?DIGITAL DEFORMITIES:? Digital contracture, PIPJ, 2-5 B/L, incompl- reducible with WB, or to push-up test, no over, nor underlapping, MPJ Contracture/Dorsal subluxation, 2-5 B/L with pop plantar 2,3 mtpj's.?X-Rays - IMAGING REPORT: ?Clinical Indication(s):? Evaluate Biomechanical Deformity, Evaluate for Fracture.?Views:? 3 views of Foot, B/L.?Findings:? mild generalized decrease in bone density.?Foot structure:? reveals excess pronation with, anterior break in cyme line.?Digits:? show asymmetrical joint space narrowing at the PIPJ consistent with clinical finding of hammertoe deformity, show enlarged/hypertrophied phalangeal head(s) consistent for clinical finding of hammertoe deformity, 2nd digit, 3rd digit.?HAV:? increased First Intermetatarsal angle and Hallux Abductus angle consistent with Bunion deformity noted, hypertrophy of the dorsal and medial 1st MTH without subchondral cyst, there is asymmetrical narrowing of the 1st MPJ joint space, there is increased density of the 1st MPJ with asymmetrical joint space narrowing, there is an exostosis located at the dorsal aspect of the 1st MTH, there is an exostosis located at the dorsal aspect of the base of the proximal phalanx.?Fracture:? Sign of fracture identified, 2nd MT left, mild displaced with mild shortening, iqra callus present.? Assessment: * Assessment: 1.?Metatarsalgia, right foot - M77.41?2.?Metatarsalgia, left foot - M77.42 (Primary)?3.?Hallux rigidus, right foot - M20.21?4.?Hallux valgus (acquired), left foot - M20.12?5.?Other hammer toe(s) (acquired), right foot - M20.41?6.?Other hammer toe(s) (acquired), left foot - M20.42?7.?Stress fracture, left foot, sequela - M84.375S? Plan: * Treatment: 2.?Metatarsalgia, right foot ?Imaging: X ray : Foot, right 3V * Procedure Codes:?89267 X-RAY EXAM OF LEFT FOOT 3V, Modifiers: 26 , [id number] X-RAY EXAM OF RIGHT FOOT 3V, Modifiers: 26 , RT * Preventive Medicine:? ??Counseling:?Discussion:?-03: Office or other outpatient visit for the evaluation and management of a new patient, which required a medically appropriate history and/or examination and LOW level of DECISION MAKING for: 1 STABLE ACUTE UNCOMPLICATED PROBLEM, 2 OR MORE MINOR PROBLEMS, OR 1 STABLE CHRONIC PROBLEM, THAT POSE(S) A LOW RISK FOR MORBIDITY/MORTALITY. The visit on the day of the encounter encompassed interpreting the data and educating the patient as to the nature of their condition, treatment options available according to their individual PMH, meds, allergies, and overall health/living conditions, as well as any potential risks or complications that may occur from a failure to adhere to, and participate in, the recommended course of therapy. The discussion included a complete verbal, and/or written explanation of the examination results, any x-rays taken, the proposed diagnosis, and outline of the treatment plan. A schedule for future care needs was also explained. The patient verbalized an understanding of the instructions at this time and agreed to be an active participant in their treatment. If the patient should think of any questions or concerns after the visit, I have encouraged the patient to call the office.?P.R.I.C.E.:?The patient was counseled on the use of P.R.I.C.E. and NSAIDS (if well tolerated) to aid in the recovery from their painful condition.?Shoe Gear Counseling:?The patient and I reviewed the types of shoes they should be wearing. My recommendation included obtaining a well-fitted shoe with a good supportive, non-foldable nor twistable sole, plenty of toe/room for the forefoot, and proper arch support. Based on todays examination, I recommended the patient look for new shoes, by having their feet professionally measured. We discussed that generally the best time of the day for a shoe fitting is the afternoon. Different shoes types and brands to best match the patients occupation and vocation were discussed. Specific brand selection will be up to the patient, their individual foot condition/deformities, and fit. The patient and I reviewed the standard new shoe break in period by wearing them for a few hours a day while checking for redness or sores as wear time is increased. The patient verbally confirmed to understanding the information discussed.? * Follow Up:?prn * Images: * Sign off status: Completed true * Provider:?Rickie Inman DPM Date:? 024 Generated for Thom roberts/Doni/Carmen on:?12/30/2024 09:04 AM EDT History and Physical Notes * HPI (History of Present Illness) Category Sub-Category Detail Notes Category Not es Foot Pain Aggrevated: any pressure, st anding, walking, barefoot walking Onset/Cause: overuse Course: improved, at __80_ % Duration: several months Nature: aching, swelling, te nderness Treatments: rest, ice, tyl Quality/Severity 6 in December and now 2, scale 1-10 Location Bottom, Forefoot, B/ L, L>R Examination Category Sub-Category Detail Notes Category Not es Neuroma Pain PALPATION: No interspace pain noted on palpation Neurological SENSORY: Neurological exa m is normal, pain sensation normal, vibration sensation intact, pinprick sensation is normal in the lower extremities, denies, tingling, burning, anesthesia, paresthesia, hyperesthesia, B/L BABINSKI REFLEX: absent TINEL'S COMPRESSION: Negative tarsal adam césar, mari pedis, and medial calcaneal nerves B/L Dermatologic SKIN FINDINGS: Skin exam reveal s normal texture, elasticity, and tugor. There are no masses. The interspaces are clear, B/L Orthopedic GAIT ABNORMALITY: pronated, abducted, B/L BUNION: Dorsally prominent 1st MPJ, (+) Pain on palpation, RIGHT, Limited 1st MPJ Dorsal ROM, Limited 1st MPJ Plantar ROM , Medially prominent 1st MPJ, (+) Pain on palpation, LEFT, Lateral tracking 1st MPJ incompletely reducible DIGITAL DEFORMITIES: Digital contracture , PIPJ, 2-5 B/L, incompl-reducible with WB, or to push-up test, no over, nor underlapping, MPJ Contracture/Dorsal subluxation, 2-5 B/L with pop plantar 2,3 mtpj's MUSCLE STRENGTH: 5/5 all groups in a symmetrical fashion , B/L General Examination GENERAL APPEARANCE: pleasant , alert, well nourished, well developed, well hydrated, with good attention to hygene/body habitus, and in no acute distress ORIENTED: person,place, and ti me Vascular DP PULSES (B): 2/4, B/L PT PULSES (B): 2/4, B/L CAPILLARY FILL TIME: 3 secs. per digit, B/L TEMPERTURE GRADIENT (C): warm to cool, p roximal to distal, B/L TROPHIC CONDITION-TEXTURE/ELASTICITY/TURGOR/HAIR GROWTH (B): normal, B/L EDEMA (C): no edema TELANGECTASIA: absent VARICOSITIES: absent PIGMENTATION: normal, B/L X-Rays - IMAGING REPORT Findings: mild generalized decrease in bone density Fracture: Sign of fracture valentina ntified, 2nd MT left, mild displaced with mild shortening, iqra callus present Digits: show asymmetrical ken int space narrowing at the PIPJ consistent with clinical finding of hammertoe deformity, show enlarged/hypertrophied phalangeal head(s) consistent for clinical finding of hammertoe deformity, 2nd digit, 3rd digit Foot structure: reveals excess prona tion with, anterior break in cyme line HAV: increased First Inte rmetatarsal angle and Hallux Abductus angle consistent with Bunion deformity noted, hypertrophy of the dorsal and medial 1st MTH without subchondral cyst, there is asymmetrical narrowing of the 1st MPJ joint space, there is increased density of the 1st MPJ with asymmetrical joint space narrowing, there is an exostosis located at the dorsal aspect of the 1st MTH, there is an exostosis located at the dorsal aspect of the base of the proximal phalanx Views: 3 views of Foot, B/L Clinical Indication(s): Evaluate Biomech anical Deformity, Evaluate for Fracture
--- OUTSIDE RECORDS SUMMARY | 2024-12-30 09:05 | XMS_ITS | Patient Health Record ---
Author Organization [facility] [place] Address [address] [facility] [place] [address] Care Team Providers Care Research Electrician Name Role Phone Issa Rodriguez MD Primary Care Provider Rickie Boland Unavailable [phone] Reason For Referral No Information Medications Medication SIG (Take, Route, Frequency, Duration) Notes Start Date End Date Status amLODIPine Besylate 5 MG 1 tablet Orally Once a day for 30 day(s) Active Pravastatin Sodium 20 MG 1 tablet Orally Once a day Active Atenolol 25 MG 1 tablet Orally Once a day Active Losartan Potassium 50 MG 1 tablet Orally Once a day Active amLODIPine Besylate 5 MG 1 tablet Orally Once a day Active Pravastatin Sodium 20 MG 1 tablet Orally Once a day for 30 day(s) Active Losartan Potassium 50 MG 1 tablet Orally Once a day for 30 day(s) Active Atenolol 25 MG 1 tablet Orally Once a day for 30 day(s) Active Social History Tobacco Use: [...] W/U Status Risk Notes Problem Acquired hallux valgus (82144510) Hallux valgus (acquired), left foot (M20.12) Active confirmed Problem Acquired hammer toe of right foot (7726681610894 105) Other hammer toe(s) (acquired), right foot (M20.41) Active confirmed Problem Acquired hammer toe of left foot (0475331500646 103) Other hammer toe(s) (acquired), left foot (M20.42) Active confirmed Problem Acquired hallux rigidus (7517515) Hallux rigidus, right foot (M20.21) Active confirmed Vital Signs Height 5 ft 7 in in 03/11/2024 Weight 170 lbs 03/11/2024 BMI 26.62 kg/m2 03/11/2024 Encounters Encounter Location Date Provider Diagnosis [facility] [place] [address] [place] [address] 03/11/2024 Rickie Inman Metatarsalgia, left foot M77.42 [...] Treatment Clinical Notes Section Notes 03/11/2024 Metatarsalgia, right foot (ICD-10 - M77.41) 03/11/2024 Metatarsalgia, left foot (ICD-10 - M77.42) 03/11/2024 Hallux rigidus, right foot (ICD-10 - [...] X ray : Foot, right 3V 03/11/2024 Insurance Providers Payer Name Payer Address Payer Phone Subscriber Number Group Number Insured Name Patient Relationship to Insured Coverage Start Date Coverage End Date Medicare [employer] [address] [place] [address] [id number] Ernestine Escudero Self - patient is the insured [facility] [address] [place] [address] [phone] [id number] Kota Ernestine Self - patient is the insured Medical (General) History Medical History History ICD Code Cataracts High blood pressure Osteoporosis Chicken pox Joint implants/screws Surgical History Surgery Date(Month/Year) Abel hip Surgery 2019 Abel Knee surgery 2015
--- OUTSIDE RECORDS SUMMARY | 2024-12-30 09:05 | XMS_ITS ---
Author Organization [facility] Address [address] [place] [address] Care Team Providers Care Promotion Specialist Name Role Phone Issa Rodriguez MD Primary Care Provider Rickie Boland Unavailable [phone] REASON FOR VISIT Seen Sooner Medications Medication [...] 04/03/2024 Encounters Encounter Location Date Provider [facility] [address] [place] [address] 04/03/2024 Rickie Inman Plan Of Treatment No Information Progress Notes * YUKOKassie GRIMEStommiesDOB: 0 (84 yo F)Acc No.[id number]:04/03/2024 Progress Notes Patient:?Kassie MELVINlis Provider:?Rickie Inman DPM :1940???Age:83 Y???Sex:Female D ate:04/03/2024 Address:[address] [place] [address], [place] [facility] Pcp:Issa Rodriguez MD Subjective: * Chief Complaints: * ???1. Seen Sooner. * ROS:?General/Constitutional:?Nausea?denies.?Vomiting?denies.?Hunger Thirst?denies.?Loss appetite?denies.?Chills?denies.?Fatigue?denies.?Fever?denies.?Night Sweats?denies.?Unexplained weight loss?denies.?Unexplained weight gain?denies.?HEENTM:?Dentures?denies.?Dizziness?denies.?Glasses/contacts?admits.?Retinopathy?de nies.?Blurred/double vision?denies.?TMJ?denies.?Discharge/drainage?denies.?Implants?denies.?Sore throat?denies.?Dental implants?denies.?Hard of hearing ?denies.?Difficulty chewing/swallowing/speaking?denies.?Nose bleeds?denies.?Sore mouth?denies.?Respiratory:?On Oxygen?denies.?Pneumonia/pleurisy?denies.?Bronchitis?denies.?Emphysema?denies.?C oughing?denies.?Cough blood?denies.?Shortness of breath?denies.?Wheezing?denies.?Cardiovascular:?Pacemaker?denies.?MVP?denies.?WPW?denies.?CHF?denies.?Heart attack?denies.?Septal defect?denies.?Rapid beat?denies.?Chest pain ?denies.?Atrial Fib.?denies.?Murmur/Palpitations?denies.?Gastrointestinal:?Hemorrhoids?denies.?Stomach/Abdominal pain?denies.?Dark blood stool?denies.?Irritable bowel ?denies.?Constipation?denies.?Diarrhea?denies.?Hematology:?Swelling?admits.?Clots?denies.?Varicose Veins?denies.?Bruising?denies.?Bleeding problem?denies.?Genitourinary:?Blood urine?denies.?Frequent/Painfu/urination/bladder control?denies.?Kidney stones?denies.?Infection (UTI)?denies.?Nephropathy?denies.?sex trans dis (STD)?denies.?Prostate?denies.?Musculoskeletal:?Hammertoes?denies.?Bunions?admits.?Back Pain?denies.?Muscle Cramps/ Resting?denies.?Muscle cramps / walking?denies.?Generalized aches and pains?admits.?Weakness?denies.?Integ.:?Jj?denies.?Scars?denies.?Corns/calluses?denies.?Ingrown nails?denies.?Painful nails?denies.?Open Sores?denies.?Rashes?denies.?Neurologic:?Difficulty sleeping?denies.?Brain disorder?denies.?Numbness?denies.?Balance trouble?denies.?Confusion?denies.?Fainting/blackouts?denies.?Tingling?denies.?Tr emors?denies.? * Medical History:?Cataracts, High blood pressure, Osteoporosis, Chicken pox, Joint implants/screws. * Surgical History:? Abel hip S urgery 2008, 2019, Abel Knee surgery 2013, 2016. * Family History:?Mother: dece ased.?Father: .? * Social History:?Tobacco Use:?Tobacco Use/Smoking?Are you a:?nonsmoker ?Tobacco use other than smoking?Are you an other tobacco user??No ???Drugs/Alcohol:?Drugs?Have you used drugs other than those for medical reasons in the past 12 months??No ?Alcohol Screen?Did you have a drink containing alcohol in the past year??Yes ?Points?0 ?Interpretation?Negative ???Miscellaneous:?Caffeine: yes, frequency:, 1-2 cups per day. ?Exercise: golf, senior exercise class 2x weekly. ?Occupation: Retired. * Medications:?Taking Pravasta tin Sodium 20 MG Tablet 1 tablet Orally Once a day , Taking Losartan Potassium 50 MG Tablet 1 tablet Orally Once a day , Taking Atenolol 25 MG Tablet 1 tablet Orally Once a day , Taking amLODIPine Besylate 5 MG Tablet 1 tablet Orally Once a day Objective: * Vitals:?Ht: 5 ft 7 in, Wt:17 0, BMI:26.62, Shoe size:9. Assessment: Plan: * Treatment: * Images: * The named appointment provid er may or may not be the originator of this progress note, and it is not deemed complete until electronically signed by the appointment provider. Sign off status: Pending * Provider:?Rickie Inman DPM Date:? 024 Generated for Thom roberts/Doni/Carmen on:?12/30/2024 09:04 AM EDT
== END 2024-12-30 08:58 | disposition home or self-care (01) ==
LOC: HO.MAMMO 08:57
PROVIDERS: PCP Internal Medicine; Visit Provider Internal Medicine
DX: Z12.31 Encounter for screening mammogram for malignant neoplasm of breast (principal)
CPT/HCPCS: 77063; 77067

== ENCOUNTER → 2024-12-30 09:00 | Outpatient (BNV) | payer MEDICARE, SELFPAY | PROVIDERS: PCP Internal Medicine; Visit Provider Internal Medicine | DX: Z12.31 Encounter for screening mammogram for malignant neoplasm of breast (principal) | CPT/HCPCS: 77063; 77067 ==

== ENCOUNTER 2025-01-20 13:17 | Outpatient (AMB) | payer MEDICARE, SELFPAY ==
--- NOTE | 2025-01-20 13:16 | A.OFFPC_ITS ---
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 Accompanied by: Self / Same As Patient Allergies No Known Allergies [NO KNOWN ALLERGIES] Allergy (Unknown, Verified 01/20/25 13:16) N/A Tobacco use date assessed: 01/20/25 Fall risk assessment: No Falls in past year Last assessed Fall Risk: 01/20/25 Dental Screening Dental Screen Date: 01/20/25 Did you have a dental visit in the last 12 months?: Yes Did you have a dental problem in the last 6 months where you did not have access to dental care?: No HPI HPI Comments History of Present Illness Details 84-year-old female with history of hyper lipidemia, hypertension, osteopenia presents to the office today for management of chronic conditions and to establish care. Hypertension-compliant with amlodipine 5 mg daily, atenolol 25 mg daily, losartan 50 mg daily. Blood pressure in the office today Hyperlipidemia-last LDL 153. Currently taking pravastatin 20 mg daily. Osteopenia-taking calcium and vitamin-D. Overdue for DEXA scan Reporting decreased endurance and poor sleep. Has been having difficulty with leg cramping with exertion. No restless legs. Taking mag supplement. NOt drinking enough water. No diuretics. No dark urine. Health maintenance: Overdue for DEXA scan ROS: General: No fevers, malaise, unintentional weight loss HEENT: No blurred vision, diplopia. No sore throat, nasal congestion, rhinorrhea, sinus pain, ear pain Cardiovascular: No chest pain, palpitations, or leg edema Respiratory: No shortness of breath, wheezing, cough GI: No abdominal pain, nausea, vomiting, diarrhea, constipation, melena, hematochezia : No dysuria, hematuria, increased urinary frequency, decreased urinary output MSK: No myalgia, back pain Neuro: No headaches, weakness, paresthesias Skin: No rashes or lesions EXAM: Constitutional - Awake and Alert, No apparent distress Eyes - PERRLA, EOMI Cardiovascular - S1S2, RRR, No edema Respiratory - Normal lung expansion, Normal respiratory effort, No respiratory distress, CTA bilaterally Extremities - no calf tenderness bilaterally, no swelling. BLE nontender to palpations Skin - Warm/Dry Neurological - Alert & oriented x3 Psychological - Appropriate affect PFSH Medical History Basal cell carcinoma Right carpal tunnel syndrome Osteopenia Hyperlipemia Hypertension Surgical History S/P cataract extraction History of knee replacement History of hip replacement Family History (Updated 01/20/25 @ 13:27 by Jerica Miranda MA) Mother No problems noted. Father No problems noted. Social History Housing: House Patient Tobacco Use Status: Never used Tobacco e-Cigarette/Vaping Use: Never Used service: No Current occupational status: retired Cognitive needs: No Hearing needs: No Vision needs: Yes (readingv glasses) Questionnaire PHQ-9 Over the last 2 weeks, how often have you been bothered by any of the following problems? 1. Little interest or pleasure in doing things: not at all 2. Feeling down, depressed, or hopeless: not at all 3. Trouble falling or staying asleep, or sleeping too much: not at all 4. Feeling tired or having little energy: not at all 5. Poor appetite or overeating: not at all 6. Feeling bad about yourself - or that you are a failure or have let yourself or your family down: not at all 7. Trouble concentrating on things, such as reading the newspaper or watching television: not at all 8. Moving or speaking so slowly that other people could have noticed. Or the opposite - being so fidgety or restless that you have been moving around a lot more than usual: not at all 9. Thoughts that you would be better off or of hurting yourself in some way: not at all Total score: 0 Source: Developed by Drs. Eren Shannon, Irlanda Renee, Soy Pal and colleagues, with an educational ogrdon from [employer]. Thrive Questionnaire Date Thrive assessed: 01/20/25 I am a: Patient Within the past 12 months, did the food you bought not last and you didn't have the money to get more?: Never true Within the past 12 months, did you worry whether your food would run out before you got money to buy more?: Never true Do you have trouble paying for medicines?: No Do you have trouble getting transportation to medical appointments?: No Do you have trouble paying your heating and electricity bill?: No Do you have trouble taking care of your child, family member or friend?: No Do you have trouble with day-to-day activities such as bathing, preparing meals, shopping, managing finances, etc.?: No Are you currently unemployed and looking for a job?: No Are you interested in more education?: No THRIVE Score: 0 AUDIT C Alcohol Use Questionnaire (AUDIT-C) 1. How often do you have a drink containing alcohol?: Monthly or less 2. How many drinks containing alcohol do you have on a typical day when you are drinking?: 1 or 2 3. How often do you have six or more drinks on one occasion?: Less than monthly Total Score: 2 VIRAL-7 AMB Questionnaire VIRAL-7 Date VIRAL - 7 assessed: 01/20/25 Feeling nervous, anxious, or on edge: 0 = Not at all Not being able to stop or control worryin = Not at all Worrying too much about different things: 0 = Not at all Trouble relaxin = Not at all Being so restless that it is hard to sit still: 0 = Not at all Becoming easily annoyed or irritable: 0 = Not at all Feeling afraid as if something awful might happen: 0 = Not at all Total VIRAL-7 score (0-4 normal; 5-9 mild; 10-14 moderate; 15-21 severe): 0 Source: Developed by Drs. Eren Shannon, Irlanda Renee, Soy Pal and colleagues, with an educational gordon from [employer]. Physical exam (Primary Care) Vital Signs: Last Vital Signs Temp 98.1 F 01/20/25 13:23 Pulse 63 01/20/25 13:23 BP 130/80 01/20/25 13:23 Pulse Ox 99 01/20/25 13:23 Oxygen Delivery Method Room Air 01/20/25 13:23 BMI result Body Mass Index 26.9 Tobacco/Smoking Status: Tobacco use Status Tobacco use date assessed 01/20/25 01/20/25 13:17 Patient Tobacco Use Status Never used Tobacco 01/20/25 13:17 e-Cigarette/Vaping Use Never Used 01/20/25 13:17 PHQ-9: PHQ-9 Score PHQ-9: Total score 0 01/20/25 13:27 Thrive Assessment: Date of Thrive Assessment Date Thrive assessed 01/20/25 01/20/25 13:17 Coding Level of Care Code New Pt Level 4 (18236) Complex EM visit Add On G2211 Diagnoses Hypertension I10 High cholesterol E78.00 Osteopenia M85.80 Leg cramping R25.2 Assessment & Plan Assessment & Plan (1) Hypertension: Code(s): I10 - Essential (primary) hypertension Category: Medical Plan: Controlled. Continue amlodipine 5 mg daily, atenolol 25 mg daily, losartan 50 mg daily. Will evaluate renal function electrolyte levels. Low-sodium diet recommended (2) High cholesterol: Code(s): E78.00 - Pure hypercholesterolemia, unspecified Category: Medical Plan: Lipid panel ordered. Continue pravastatin 20 mg nightly. We will assess labs below given muscle cramping. (3) Osteopenia: Code(s): M85.80 - Other specified disorders of bone density and structure, unspecified site Category: Medical Plan: DEXA scan ordered. Continue calcium and vitamin-D and weight-bearing exercise (4) Leg cramping: Code(s): R25.2 - Cramp and spasm Category: Medical Plan: Possibly related to statin. We will assess electrolyte levels including potassium and magnesium, CPK, thyroid function. Increase fluid intake. Plan Follow-up in 6 months. Labs to be completed following visit as well as prior to next visit. Continue medications as prescribed. DEXA scan ordered Orders: Orders Basic Metabolic Panel Today R25.2 - Cramp and spasm Magnesium Today R25.2 - Cramp and spasm Lipid Panel Today R25.2 - Cramp and spasm TSH reflex Free T4 Today R25.2 - Cramp and spasm Vitamin D 25-OH Total Today R25.2 - Cramp and spasm Basic Metabolic Panel 6 Months I10 - Essential (primary) hypertension Creatine Kinase Total Today R25.2 - Cramp and spasm XR DEXA appendicular skeleton Today M85.80 - Other specified disorders of bone density and structure, unspecified site Medications: Discontinued ciprofloxacin HCl (Cipro) Discontinued Reason: Patient no longer taking 500 mg PO BID 14 tabs 0RF
[2025-01-20 13:23] VITALS: BP 130/80; PULSE 63; TEMP 36.7; O2SAT 99; BMI 26.9
--- OUTSIDE RECORDS SUMMARY | 2025-01-20 14:20 | XMS_ITS ---
Author Organization [facility] Address [address] [place] [address] Care Team Providers Care Mortgage Originator Name Role Phone Issa Rodriguez MD Primary Care Provider Rickie Boland Unavailable [phone] REASON FOR VISIT Seen Sooner Medications Medication [...] 04/03/2024 Encounters Encounter Location Date Provider Diagnosis [facility] [address] [place] [address] 04/03/2024 Rickie Inman Plan Of Treatment No Information Progress Notes * YUKOKassie GRIMEStommiesDOB: 0 (84 yo F)Acc No.[id number]:04/03/2024 Progress Notes Patient:?Kassie MELVINlis Provider:?Rickie Inman DPM :1940???Age:83 Y???Sex:Female D ate:04/03/2024 Address:[address] [place] [address], [place] [id number] Pcp:Issa Rodriguez MD Subjective: * Chief Complaints: [...] DPM Date:? 024 Generated for Thom roberts/Doni/Carmen on:?01/20/2025 02:20 PM EDT
== END 2025-01-20 13:53 | disposition home or self-care (01) ==
LOC: HO.HMCHD 13:17
PROVIDERS: PCP Internal Medicine; Visit Provider Physician Assistant
DX: I10 Essential (primary) hypertension (principal); E78.00 Pure hypercholesterolemia, unspecified; M85.80 Other specified disorders of bone density and structure, unspecified site; R25.2 Cramp and spasm

== ENCOUNTER 2025-01-20 13:17 | Outpatient (REF) | payer MEDICARE, SELFPAY ==
[2025-01-20 16:10] LABS: Anion Gap 13 (12-20); Blood Urea Nitrogen 17 mg/dL (9-16); Calcium 9.6 mg/dL (8.4-10.2); Carbon Dioxide 28 mmol/L (22-29); Chloride 106 mmol/L (96-108); Cholesterol 227 mg/dL (<200); Estimated Glomerular Filt Rate > 60; Glucose Random 93 mg/dL (60-115); HDL Cholesterol 58 mg/dL (>40); LDL Cholesterol Calculated 147 mg/dL (<100); Magnesium 2.3 mg/dL (1.6-2.6); Potassium 4.1 mmol/L (3.3-5.1); Sodium 143 mmol/L (135-145); Triglycerides 113 mg/dL (<150)
[2025-01-20 16:25] LABS: Vitamin D 25-OH Total 55.8 ng/mL (>30)
== END 2025-01-20 13:18 | disposition home or self-care (01) ==
LOC: HO.LAB 13:17
PROVIDERS: PCP Internal Medicine; Visit Provider Physician Assistant
DX: I10 Essential (primary) hypertension (principal); E78.00 Pure hypercholesterolemia, unspecified; M85.80 Other specified disorders of bone density and structure, unspecified site; R25.2 Cramp and spasm; Z79.899 Other long term (current) drug therapy
CPT/HCPCS: 36415; 80048; 80061; 82306; 82550; 83735; 84443; 96127; 99202

== ENCOUNTER 2025-05-20 08:18 | Outpatient (AMB) | payer MEDICARE, SELFPAY ==
--- OUTSIDE RECORDS SUMMARY | 2024-04-03 04:30 | XMS_ITS ---
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 Name Role Phone Issa Rodriguez MD Primary Care Provider Rickie Boland [phone] REASON FOR VISIT Seen Sooner Medications Medication SIG (Take, Route, Frequency, Duration) Notes Start Date End Date Status amLODIPine Besylate 5 MG 1 tablet Orally Once a day; Duration: 30 day(s) Active Pravastatin Sodium 20 MG 1 tablet Orally Once a day; Duration: 30 day(s) Active Losartan Potassium 50 MG 1 tablet Orally Once a day; Duration: 30 day(s) Active Atenolol 25 MG 1 tablet Orally Once a day; Duration: 30 day(s) Active Social History Tobacco Use: Social History Observation Description Date Details (start date - stop date) Never Smoker NA - NA Tobacco Use/Smoking Question Answer Notes Are you a: nonsmoker Alcohol Screen Question Answer Notes Did you have a drink containing alcohol in the p ast year? Yes Points 0 Interpretation Negative Tobacco use other than smoking: Question Answer Notes Are you an other tobacco user? No Vital Signs Height 5 ft 7 in in 04/03/2024 Weight 170 lbs 04/03/2024 BMI 26.62 kg/m2 04/03/2024 Encounters Encounter Location Date Provider Diagnosis [facility] [address] [place] [address] 04/03/2024 Rickie Inman Plan Of Treatment No Information Progress Notes * OLEGARIO JonathansDOB: 0 (85 yo F)Acc No.[id number]:04/03/2024 Progress Notes Patient: Ernestine MARIN Provider: Gila Inman DPM :1940 A ge:83 Y S ex:Female Date:04/03/2024 Address:[address] [place] [address], Sasha piper [id number] Pcp:Issa Rodriguez MD Subjective: * Chief Complaints: * 1 . Seen Sooner. * ROS: G eneral/Constitutional: Nausea d enies. V omiting d enies. H grey Thirst d enies. L oss appetite d enies. C hills d enies. F atigue d enies.?Fever d enies. N ight Sweats d enies. U nexplained weight loss d enies. U nexplained weight gain d enies. H EENTM: Dentures d enies. D izziness d enies. G lasses/contacts a dmits. R etinopathy d enies. B lurred/double vision d enies. T MJ?denies. D ischarge/drainage d enies. I mplants d enies. S ore throat d enies. D ental implants d enies. H elsy of hearing d enies. D ifficulty chewing/swallowing/speaking d enies. N ose bleeds d enies. S ore mouth d enies. ? R espiratory: On Oxygen d enies. P neumonia/pleurisy d enies.?Bronchitis d enies. E mphysema d enies. C oughing d enies. C ough blood?denies. S hortness of breath d enies. W heezing d enies. C ardiovascular: Pacemaker d enies. 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 W PW d enies. C HF d enies. H eart attack d enies. S eptal defect d enies. R apid beat d enies. C hest pain d enies. A trial Fib. d enies. M urmur/Palpitations d enies. G astrointestinal: Hemorrhoids d enies. S tomach/Abdominal pain d enies. D ark blood stool d enies. I rritable bowel d enies. C onstipation d enies. D iarrhea d enies. H ematology: Swelling a dmits. C lots d enies. V aricose Veins d enies. B ruising d enies. B leeding problem d enies. G enitourinary: Blood urine d enies. F requent/Painfu/urination/bladder control d enies. K idney stones d enies. I nfection (UTI) d enies. N ephropathy d enies. s ex trans dis (STD) d enies. P rostate d enies. M usculoskeletal: Hammertoes d enies. B unions a dmits. B ack Pain d enies. M uscle Cramps/ Resting d enies. M uscle cramps / walking d enies.?Generalized aches and pains a dmits. W eakness d enies. I nteg.: Jj d enies. S cars d enies. C orns/calluses?denies. I ngrown nails d enies. P ainful nails d enies. O pen Sores d enies. R ashes d enies. N eurologic: Difficulty sleeping d enies. B rain disorder d enies. N umbness d enies. B alance trouble d enies. C onfusion d enies. F ainting/blackouts d enies. T ingling d enies. T remors d enies. * Medical History: C ataracts, High blood pressure, Osteoporosis, Chicken pox, Joint implants/screws. * Surgical History: Abel hip Surgery 2019, Abel Knee surgery 2013, 2015. * Family History: M other: . F ather: . * Social History: T obacco Use: T obacco Use/Smoking A re you a: n onsmoker Tobacco use other than smoking A re you an other tobacco user? N o D rugs/Alcohol: D rugs H ave you used drugs other than those for medical reasons in the past 12 months? N o Alcohol Screen D id you have a drink containing alcohol in the past year? Y es P oints 0 I nterpretation N egative M iscellaneous: C affeine: yes, frequency:, 1-2 cups per day. Exercise: golf, senior exercise class 2x weekly. Occupation: Retired. * Medications: T aking Pravastatin Sodium 20 MG Tablet 1 tablet Orally Once a day , Taking Losartan Potassium 50 MG Tablet 1 tablet Orally Once a day , Taking Atenolol 25 MG Tablet 1 tablet Orally Once a day , Taking amLODIPine Besylate 5 MG Tablet 1 tablet Orally Once a day Objective: * Vitals: H t: 5 ft 7 in, Wt:170, BMI:26.62, Shoe size:9. Assessment: Plan: * Treatment: * Images: * The named appointment provid er may or may not be the originator of this progress note, and it is not deemed complete until electronically signed by the appointment provider. Sign off status: Pending * Provider: Gila Inman DPM Date: 0 04/03/2024 Generated for Thom roberts/Doni/Carmen on: 0 05/20/2025 08:33 AM EDT
--- NOTE | 2025-05-20 08:21 | A.OFFPC_ITS ---
Vital Signs 05/20/25 08:25 Height 5 ft 7 in Weight 78.018 kg BMI 26.9 BP 128/74 Respiration 16 Pulse 64 Pulse Source Pulse Oximeter Temp 97.0 F Temp Source Temporal Artery Scan Pulse Oximetry (%) 97 Oxygen Delivery Method Room Air Intake Visit Reasons: right wrist and ring & pointing finger won't work Laboratory Secretary Required: No Accompanied by: Self / Same As Patient Allergies No Known Allergies (NO KNOWN ALLERGIES) Allergy (Unknown, Verified 05/20/25 08:22) N/A Medication List - Last Reconciled 05/20/25 by BUBBA Miramontes amlodipine 5 mg PO DAILY atenolol 25 mg PO DAILY losartan 50 mg PO DAILY pravastatin 40 mg PO DAILY Tobacco use date assessed: 01/20/25 Dental Screening Dental Screen Date: 01/20/25 HPI HPI Comments History of Present Illness Details 84-year-old female with history of hyper tension, hyperlipidemia, osteopenia presenting to the office today for management of chronic conditions and for evaluation of right hand/finger issues. Hypertension-compliant with amlodipine 5 mg daily, atenolol 25 mg daily, losartan 50 mg daily. Blood pressure in the office today 128/74 Hyperlipidemia-last LDL 147. She was recommended to change her statin to rosuvastatin but was unable to tolerate due to arthralgias. She resumed her pravastatin 20 mg daily Osteopenia-taking calcium and vitamin-D. Overdue for DEXA which has been ordered Concerns: Right hand/fingers-ongoing for several weeks, has noted that her right 3rd and 4th fingers have difficulty extending. Primarily occurs following sleeping but also occurs after other periods of rest. She states she is able to massage the fingers to help them extend. She has been trying to sleep with a small ball in the palm of her hand and takes this with some improvement in symptoms but is still sore in the morning. She states that she has history of carpal tunnel syndrome which was within normal limits. Looking for referral to hand surgery, Dr. Meek. Health maintenance: DEXA scan as above ROS: See HPI EXAM: Constitutional - Awake and Alert, No apparent distress Eyes - PERRL Cardiovascular - S1S2, RRR, No edema Respiratory - Normal lung expansion, Normal respiratory effort, No respiratory distress, CTA bilaterally Extremities - no calf tenderness bilaterally, no swelling MSK-right hand-no bony abnormality, warmth, erythema. Fingers with full flexion and extension. Tenderness to palpation over the 3rd MCP into the proximal pharynx with slight swelling. Wrist nontender with full range of motion. Skin - Warm/Dry Neurological - Alert & oriented x3. 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 Father No problems noted. Social History Housing: House Patient Tobacco Use Status: Never used Tobacco e-Cigarette/Vaping Use: Never Used service: No Current occupational status: retired Cognitive needs: No Hearing needs: No Vision needs: Yes (readingv glasses) Questionnaire Thrive Questionnaire Date Thrive assessed: 01/20/25 VIRAL-7 AMB Questionnaire VIRAL-7 Date VIRAL - 7 assessed: 01/20/25 Source: Developed by Drs. Eren Shannon, Irlanda Renee, Soy Pal and colleagues, with an educational gordon from [employer]. Physical exam (Primary Care) Vital Signs: Last Vital Signs Temp 97.0 F 05/20/25 08:25 Pulse 64 05/20/25 08:25 Resp 16 05/20/25 08:25 BP 128/74 05/20/25 08:25 Pulse Ox 97 05/20/25 08:25 Oxygen Delivery Method Room Air 05/20/25 08:25 BMI result Body Mass Index 26.9 Tobacco/Smoking Status: Tobacco use Status Tobacco use date assessed 01/20/25 05/20/25 08:25 Patient Tobacco Use Status Never used Tobacco 05/20/25 08:25 e-Cigarette/Vaping Use Never Used 05/20/25 08:25 Thrive Assessment: Date of Thrive Assessment Date Thrive assessed 01/20/25 05/20/25 08:25 Coding Level of Care Code Est Pt Level 4 (97653) Complex EM visit Add On G2211 Diagnoses Tenosynovitis of fingers M65.949 Hypertension I10 High cholesterol E78.00 Osteopenia M85.80 Assessment & Plan Assessment & Plan (1) Tenosynovitis of fingers: Code(s): M65.949 - Unspecified synovitis and tenosynovitis, unspecified hand Category: Medical Plan: XR of the right hand ordered. Referred to hand surgeon, Dr. AMAYA. Recommend splints for the fingers and can kate tape. Ibuprofen, ice (2) Hypertension: Code(s): I10 - Essential (primary) hypertension Category: Medical Plan: Controlled. Continue current therapies (3) High cholesterol: Code(s): E78.00 - Pure hypercholesterolemia, unspecified Category: Medical Plan: Increase pravastatin to 40 mg daily. Continue diet low in fats and highly processed foods. Lipid panel will be rechecked prior to next visit (4) Osteopenia: Code(s): M85.80 - Other specified disorders of bone density and structure, unspecified site Category: Medical Plan: DEXA scan pending. Continue calcium and vitamin-D as well as weight-bearing exercise Plan Follow-up in the office in 6 months with labs completed prior to visit Orders: Orders Lipid Panel 6 Months E78.00 - Pure hypercholesterolemia, unspecified XR hand RT min 3V Today M79.641 - Pain in right hand Referrals Hand Surgery Referral M65.949 - Unspecified synovitis and tenosynovitis, unspecified hand Medications: New pravastatin 40 mg PO DAILY 90 tabs 1RF Discontinued pravastatin Discontinued Reason: Doctor's Order 20 mg PO DAILY 90 tabs 0RF
[2025-05-20 08:25] VITALS: BP 128/74; PULSE 64; RESP 16; TEMP 36.1; O2SAT 97; BMI 26.9
--- OUTSIDE RECORDS SUMMARY | 2025-05-20 08:33 | XMS_ITS | Patient Health Record ---
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 Name Role Phone Issa Rodriguez MD Primary Care Provider Rickie Boland Unavailable [phone] Reason For Referral No Information Medications Medication [...] Status Risk Notes Problem Acquired hallux valgus (56919237) Hallux valgus (acquired), left foot (M20.12) Active confirmed Problem Acquired hammer toe of right foot (7862397262939 105) Other hammer toe(s) (acquired), right foot (M20.41) Active confirmed Problem Acquired hammer toe of left foot (6144517378214 103) Other hammer toe(s) (acquired), left foot (M20.42) Active confirmed Problem Acquired hallux rigidus (4705264) Hallux rigidus, right foot (M20.21) Active confirmed Plan Of Treatment Pending Test Test Name Order Date X ray : Foot, left 3V 03/11/2024 X ray : Foot, right 3V 03/11/2024 Insurance Providers Payer Name Payer Address Payer Phone Subscriber Number Group Number Insured Name Patient Relationship to Insured Coverage Start Date Coverage End Date Medicare National [employer] [address] [facility] [place] [address] [id number] Ernestine Escudero Self - patient is the insured [employer] [address] [place] [address] [phone] [id number] Ernestine Escudero Self - patient is the insured Medical (General) History Medical History History ICD Code Cataracts High blood pressure Osteoporosis Chicken pox Joint implants/screws Surgical History Surgery Date(Month/Year) Abel hip Surgery 2019 Abel Knee surgery 2013, 2015
== END 2025-05-20 08:45 | disposition home or self-care (01) ==
LOC: HO.HMCHD 08:19
PROVIDERS: PCP Internal Medicine; Visit Provider Physician Assistant
DX: M65.949 Unspecified synovitis and tenosynovitis, unspecified hand (principal); I10 Essential (primary) hypertension; E78.00 Pure hypercholesterolemia, unspecified; M85.80 Other specified disorders of bone density and structure, unspecified site

== ENCOUNTER → 2025-05-20 08:18 | Outpatient (BNVA) | payer MEDICARE, SELFPAY | PROVIDERS: PCP Internal Medicine; Visit Provider Physician Assistant | DX: I10 Essential (primary) hypertension (principal); E78.00 Pure hypercholesterolemia, unspecified; M85.80 Other specified disorders of bone density and structure, unspecified site; M65.941 Unspecified synovitis and tenosynovitis, right hand | CPT/HCPCS: 99212 ==